=== PATIENT | female | born 1990 | race American Indian/Alaskan Native ===

== ENCOUNTER 2016-12-28 12:27 | Outpatient (CLI) | payer BC ==
--- NOTE | 2016-12-28 16:12 | Ultrasound Report ---
TRANSABDOMINAL AND TRANSVAGINAL PELVIC ULTRASOUND: 12/28/16 12:27:00 CLINICAL: Heavy menses. FINDINGS: Transabdominal and transvaginal pelvic ultrasound demonstrated a small uterus with normal contour and echogenicity. The uterus measures 7.1 x 4.2 x 5.8 cm. No mass or fibroid. A secretory endometrium measures 16.0 mm AP thickness. Normal ovaries with small follicles in each ovary. The right ovary measures 3.7 x 2.1 x 2.9cm. The left ovary measures 3.4 x 2.2 x 2.0cm. No adnexal mass. Mild free pelvic fluid. Normal urinary bladder. IMPRESSION: Normal uterus with a normal secretory endometrium. No uterine mass or fibroid. Normal ovaries. Physiologic free fluid in the pelvis.
== END 2016-12-28 12:28 | disposition home or self-care (01) ==
LOC: SPVWC 12:27
PROVIDERS: ATTEND Family Medicine
DX: N92.0 Excessive and frequent menstruation with regular cycle (principal)
CPT/HCPCS: 76830; 76856

== ENCOUNTER 2017-06-15 07:42 | Emergency (ER) | payer BC ==
[2017-06-15 08:42] LABS: Alanine Aminotransferase 12 units/L (7-56); Albumin 4.3 g/dL (3.9-5); BUN/Creatinine Ratio 10; Blood Urea Nitrogen 6 mg/dL (7-17); Calcium 9.5 mg/dL (8.4-10.2); Hemolysis Index 3
[2017-06-15 08:52] LABS: HCG Qualitative,Urine Positive (Negative)
[2017-06-15 08:53] LABS: Bacteria,Urine 2+ /HPF (Negative); Bilirubin,Urine NEG (Negative); Blood,Urine NEG (Negative); Color,Urine Yellow (Yellow); Mucus,Urine 1+ /HPF; Urobilinogen,Urine < 2.0 mg/dL (<2.0)
[2017-06-15] MEDS ORDERED: ZOFRAN ODT PO ONE (08:58)
[2017-06-15 09:01] LABS: Basophils # (Auto) 0.1 K/mm3 (0.0-0.1); Basophils % (Auto) 0.6 % (0.0-1.8); Eosinophils # (Auto) 0.4 K/mm3 (0.0-0.4); Eosinophils % (Auto) 4.2 % (0.0-4.3); Hematocrit 34.7 % (30.3-42.9); Hemoglobin 11.2 gm/dl (10.1-14.3); Lymphocytes # (Auto) 1.8 K/mm3 (1.2-5.4); Mean Corpuscular HGB Conc 32 % (30-34); Mean Corpuscular Volume 79 fl (79-97); Monocytes # (Auto) 0.5 K/mm3 (0.0-0.8); Monocytes % (Auto) 5.3 % (0.0-7.3); Platelet Count 369 K/mm3 (140-440); Red Blood Count 4.39 M/mm3 (3.65-5.03); Red Cell Distribution Width 18.3 % (13.2-15.2)
[2017-06-15 09:09] LABS: Lipase 22 units/L (13-60)
--- NOTE | 2017-06-15 09:19 | Emergency Department Report ---
ED N/V/D HPI - General Chief complaint: Abdominal Pain Stated complaint: VOMITING Time Seen by Provider: 06/15/17 08:43 Source: patient Mode of arrival: Ambulatory Limitations: No Limitations - History of Present Illness Initial comments: 26-year-old female past medical history none presents with complaint of one day of nausea. 2 to 3 episodes of vomiting since yesterday early afternoon. Patient states she ate a sandwich and felt nauseous afterward. Denies any diarrhea and denies any fevers or chills denies any increased urinary frequency or vaginal discharge or vaginal bleeding. Patient is awake alert and oriented 3 not in acute distress. Denies any abdominal pain at this time states she primarily feels nausea. Denies any recent antibiotic use denies any recent travel. States she mostly felt abdominal pain after retching. This spontaneously resolved after vomiting. Patient states her last menstrual period was 05/04/17. Unsure if she is currently . MD complaint: nausea, vomiting Onset/Timin -: days(s) Description of Vomiting: watery Location: epigastric Severity: mild Consistency: intermittent Associated Symptoms: nausea/vomiting - Related Data Previous Rx's Medication Instructions Recorded Last Taken Type Butalb/Acetamin/Caff 50-325-40 1 each PO Q4H PRN #14 tablet 05/02/14 Unknown Rx [Fioricet] Cyclobenzaprine [Flexeril 10mg] 10 mg PO TID PRN #14 tablet 05/02/14 Unknown Rx Ondansetron [Zofran Odt] 4 mg PO Q6H #10 tab.rapdis 05/02/14 Unknown Rx Albuterol Sulfate [Ventolin HFA] 2 puff IH Q4H PRN #1 hfa.aer.ad 08/14/14 Unknown Rx Azithromycin [Zithromax Z-VIV] 250 mg PO DAILY #1 pkg 08/14/14 Unknown Rx Loratadine [Claritin] 10 mg PO DAILY #30 tablet 08/14/14 Unknown Rx predniSONE [Deltasone] 40 mg PO QDAY #10 tab 08/14/14 Unknown Rx Doxylamine Succinate/Vit B6 1 each PO QHS PRN #20 tablet.dr 06/15/17 Unknown Rx [Diclegis Dr 10-10 mg Tablet] Nitrofurantoin Monohyd/M-Cryst 100 mg PO BID #14 capsule 06/15/17 Unknown Rx [Macrobid 100 mg Capsule] Ondansetron [Zofran Odt] 4 mg PO Q8H PRN #5 tab.rapdis 06/15/17 Unknown Rx Pnv No.95/Ferrous Fum/Folic AC 1 each PO QDAY #30 tablet 06/15/17 Unknown Rx [ Formula Tablet] Allergies Allergy/AdvReac Type Severity Reaction Status Date / Time No Known Allergies Allergy Unverified 05/02/14 21:15 ED Review of Systems ROS: Stated complaint: VOMITING Other details as noted in HPI Constitutional: denies: chills, fever Eyes: denies: eye pain, eye discharge, vision change ENT: denies: ear pain, throat pain Respiratory: denies: cough, shortness of breath, wheezing Cardiovascular: denies: chest pain, palpitations Endocrine: no symptoms reported Gastrointestinal: abdominal pain (1 day of epigastric discomfort with associated nausea and vomiting), nausea, vomiting. denies: diarrhea Genitourinary: denies: urgency, dysuria, discharge Musculoskeletal: denies: back pain, joint swelling, arthralgia Skin: denies: rash, lesions Neurological: denies: headache, weakness, paresthesias Psychiatric: denies: anxiety, depression Hematological/Lymphatic: denies: easy bleeding, easy bruising ED Past Medical Hx - Past Medical History Previous Medical History?: No - Surgical History Past Surgical History?: No - Social History Smoking Status: Never Smoker - Medications Home Medications: Home Medications Medication Instructions Recorded Confirmed Last Taken Type Butalb/Acetamin/Caff 50-325-40 1 each PO Q4H PRN #14 tablet 05/02/14 Unknown Rx [Fioricet] Cyclobenzaprine [Flexeril 10mg] 10 mg PO TID PRN #14 tablet 05/02/14 Unknown Rx Ondansetron [Zofran Odt] 4 mg PO Q6H #10 tab.rapdis 05/02/14 Unknown Rx Albuterol Sulfate [Ventolin HFA] 2 puff IH Q4H PRN #1 hfa.aer.ad 08/14/14 Unknown Rx Azithromycin [Zithromax Z-VIV] 250 mg PO DAILY #1 pkg 08/14/14 Unknown Rx Loratadine [Claritin] 10 mg PO DAILY #30 tablet 08/14/14 Unknown Rx predniSONE [Deltasone] 40 mg PO QDAY #10 tab 08/14/14 Unknown Rx Doxylamine Succinate/Vit B6 1 each PO QHS PRN #20 tablet. 06/15/17 Unknown Rx [Diclegiadriano Kendrick 10-10 mg Tablet] Nitrofurantoin Monohyd/M-Cryst 100 mg PO BID #14 capsule 06/15/17 Unknown Rx [Macrobid 100 mg Capsule] Ondansetron [Zofran Odt] 4 mg PO Q8H PRN #5 tab.rapdis 06/15/17 Unknown Rx Pnv No.95/Ferrous Fum/Folic AC 1 each PO QDAY #30 tablet 06/15/17 Unknown Rx [ Formula Tablet] ED Physical Exam - General Limitations: No Limitations General appearance: alert, in no apparent distress - Head Head exam: Present: atraumatic, normocephalic - Eye Eye exam: Present: normal appearance, PERRL, EOMI - ENT ENT exam: Present: mucous membranes moist - Neck Neck exam: Present: normal inspection - Respiratory Respiratory exam: Present: normal lung sounds bilaterally. Absent: respiratory distress - Cardiovascular Cardiovascular Exam: Present: regular rate, normal rhythm. Absent: systolic murmur, diastolic murmur, rubs, gallop - GI/Abdominal GI/Abdominal exam: Present: soft, normal bowel sounds - Extremities Exam Extremities exam: Present: normal inspection - Back Exam Back exam: Present: normal inspection - Neurological Exam Neurological exam: Present: alert, oriented X3 - Psychiatric Psychiatric exam: Present: normal affect, normal mood - Skin Skin exam: Present: warm, dry, intact, normal color. Absent: rash ED Course Vital Signs 06/15/17 08:00 Temperature 98.2 F Pulse Rate 72 Respiratory 18 Rate Blood Pressure 109/57 O2 Sat by Pulse 99 Oximetry ED Medical Decision Making - Lab Data Result diagrams: 06/15/17 08:10 06/15/17 08:10 - Medical Decision Making A/P: Nausea and vomiting, 1- ultrasound shows IUP bout 6 weeks, UA shows large leukocyte esterase, wet prep unremarkable. Macrobid empirically for UTI 2- case discussed with Dr. Wellington before discharge 3- Diclegis when necessary, La when necessary for nausea, short course Zofran, vitamins 4- follow-up with [facility]. Patient has no vaginal bleeding or discharge at this time 5- vital signs stable and patient tolerating by mouth without difficulty before discharge Critical care attestation.: If time is entered above; I have spent that time in minutes in the direct care of this critically ill patient, excluding procedure time. ED Disposition Clinical Impression: Qualifiers: Weeks of gestation: less than 8 weeks Qualified Code(s): Z3A.01 - Less than 8 weeks gestation of Nausea & vomiting Qualifiers: Vomiting type: unspecified Vomiting Intractability: non-intractable Qualified Code(s): R11.2 - Nausea with vomiting, unspecified Disposition: DC- TO HOME OR SELFCARE Is pt being admited?: No Does the pt Need Aspirin: No Condition: Stable Instructions: Abdominal Pain (ED), Morning Sickness (ED), (ED), Urinary Tract Infection in Women (ED) Prescriptions: Doxylamine Succinate/Vit B6 [Zuri Kendrick 10-10 mg Tablet] 1 each PO QHS PRN #20 tablet.dr PRN Reason: Nausea Nitrofurantoin Monohyd/M-Cryst [Macrobid 100 mg Capsule] 100 mg PO BID #14 capsule Ondansetron [Zofran Odt] 4 mg PO Q8H PRN #5 tab.rapdis PRN Reason: Nausea Pnv No.95/Ferrous Fum/Folic AC [ Formula Tablet] 1 each PO QDAY #30 tablet Referrals: [facility] [[facility]] - 3-5 Days Forms: Work/School Release Form(ED) Time of Disposition: 11:05
[2017-06-15 09:28] LABS: Mean Corpuscular Hemoglobin 26 pg (28-32)
--- NOTE | 2017-06-15 10:00 | Ultrasound Report ---
ULTRASOUND OB LESS THAN 14 WEEKS FETUS ULTRASOUND OB TRANSVAGINAL HISTORY: Abdominal pain during . COMPARISON: None. TECHNIQUE: Transabdominal and transvaginal ultrasound with color doppler interrogation. FINDINGS: Uterus: The uterus measures 10 x 5 x 5 cm. No uterine mass. Normal cervix. Endometrium: An intrauterine gestational sac containing a small yolk sac is identified. Average diameter measures 13.7 mm which correlates with a 6 week, 2 day . No pole or heart tones could be demonstrated.. Right ovary: 3.0 x 2.8 x 2.9 cm. 2.1 cm corpus luteum cyst is suspected in the right ovary. Left ovary: 3.1 x 1.6 x 1.8 cm. No focal abnormality. No pelvic fluid or mass is identified. Normal color doppler interrogation. IMPRESSION: An intrauterine gestational sac containing a yolk sac is identified. No pole or heart tones are demonstrated at this time. This could represent a very early although blighted ovum is not excluded. Close followup is recommended.
[2017-06-15 11:44] VITALS: BP 100/63
== END 2017-06-15 11:41 | disposition home or self-care (01) ==
LOC: ED 07:42
DX: O26.891 Other specified pregnancy related conditions, first trimester (principal); Z3A.01 Less than 8 weeks gestation of pregnancy
CPT/HCPCS: 36415; 76801; 76817; 80053; 81001; 81025; 82150; 83690; 84702; 85025; 86900; 86901; 87210; 87591; Q0162

== ENCOUNTER 2017-06-21 16:25 | Emergency (ER) | payer BC ==
[2017-06-21 16:48] VITALS: BP 112/58
[2017-06-21 18:26] LABS: Bacteria,Urine 1+ /HPF (Negative); Bilirubin,Urine NEG (Negative); Blood,Urine NEG (Negative); Color,Urine Yellow (Yellow); Mucus,Urine 3+ /HPF; Urobilinogen,Urine < 2.0 mg/dL (<2.0)
--- NOTE | 2017-06-21 20:18 | Emergency Department Report ---
ED General Adult HPI - General Chief complaint: Abdominal Pain Stated complaint: STOMACH PAIN/CP/ 7 WKS PREG Time Seen by Provider: 06/21/17 20:14 Source: patient Mode of arrival: Ambulatory Limitations: No Limitations - History of Present Illness Initial comments: 26-year-old -[place] female comes to the ER with complaints of nausea and vomiting, and constipation. Patient also complains of lower abdominal pain and states that she has a bowel movement daily but has not gone in 2 days. Patient is 7 weeks . She complains of mild dryness pelvic pain and nausea with vomiting. She denies any chest pain shortness of breathing vaginal discharge headache. Patient was last seen on 06/15/2017 for nausea diagnosis of and a urinary tract infection. Patient reports she's been taking the medication prescribed which was vitamins with iron, Zofran. He has a past medical history of asthma. -: days(s) (2) Location: pelvis Severity scale (0 -10): 8 Quality: burning, aching Consistency: constant Improves with: none Worsens with: none Associated Symptoms: nausea/vomiting. denies: chest pain, cough, fever/chills, headaches, loss of appetite, shortness of breath, syncope Treatments Prior to Arrival: none - Related Data Previous Rx's Medication Instructions Recorded Last Taken Type Ondansetron [Zofran Odt] 4 mg PO Q6H #10 tab.rapdis 05/02/14 Unknown Rx Albuterol Sulfate [Ventolin HFA] 2 puff IH Q4H PRN #1 hfa.aer.ad 08/14/14 Unknown Rx Loratadine [Claritin] 10 mg PO DAILY #30 tablet 08/14/14 Unknown Rx predniSONE [Deltasone] 40 mg PO QDAY #10 tab 08/14/14 Unknown Rx Ondansetron [Zofran Odt] 4 mg PO Q8H PRN #5 tab.rapdis 06/15/17 Unknown Rx Pnv No.95/Ferrous Fum/Folic AC 1 each PO QDAY #30 tablet 06/15/17 Unknown Rx [ Formula Tablet] Cephalexin [Keflex] 500 mg PO BID #20 capsule 06/21/17 Unknown Rx La Root [La] 250 mg PO QID PRN #20 capsule 06/21/17 Unknown Rx Ondansetron [Zofran ODT TAB] 8 mg PO Q8H PRN #9 tab.rapdis 06/21/17 Unknown Rx Allergies Allergy/AdvReac Type Severity Reaction Status Date / Time No Known Allergies Allergy Unverified 05/02/14 21:15 ED Review of Systems ROS: Stated complaint: STOMACH PAIN/CP/ 7 WKS PREG Other details as noted in HPI Constitutional: denies: chills, fever Eyes: denies: eye pain, eye discharge, vision change ENT: denies: ear pain, throat pain Respiratory: denies: cough, shortness of breath, wheezing Cardiovascular: denies: chest pain, palpitations Endocrine: no symptoms reported Gastrointestinal: abdominal pain, nausea, vomiting, constipation Genitourinary: denies: urgency, dysuria, discharge Musculoskeletal: denies: back pain, joint swelling, arthralgia Skin: denies: rash, lesions Neurological: denies: headache, weakness, paresthesias Psychiatric: denies: anxiety, depression Hematological/Lymphatic: denies: easy bleeding, easy bruising ED Past Medical Hx - Past Medical History Previous Medical History?: Yes Hx Asthma: Yes - Surgical History Past Surgical History?: No - Social History Smoking Status: Never Smoker Substance Use Type: None - Medications Home Medications: Home Medications Medication Instructions Recorded Confirmed Last Taken Type Ondansetron [Zofran Odt] 4 mg PO Q6H #10 tab.rapdis 05/02/14 Unknown Rx Albuterol Sulfate [Ventolin HFA] 2 puff IH Q4H PRN #1 hfa.aer.ad 08/14/14 Unknown Rx Loratadine [Claritin] 10 mg PO DAILY #30 tablet 08/14/14 Unknown Rx predniSONE [Deltasone] 40 mg PO QDAY #10 tab 08/14/14 Unknown Rx Ondansetron [Zofran Odt] 4 mg PO Q8H PRN #5 tab.rapdis 06/15/17 Unknown Rx Pnv No.95/Ferrous Fum/Folic AC 1 each PO QDAY #30 tablet 06/15/17 Unknown Rx [ Formula Tablet] Cephalexin [Keflex] 500 mg PO BID #20 capsule 06/21/17 Unknown Rx La Root [La] 250 mg PO QID PRN #20 capsule 06/21/17 Unknown Rx Ondansetron [Zofran ODT TAB] 8 mg PO Q8H PRN #9 tab.rapdis 06/21/17 Unknown Rx ED Physical Exam - General Limitations: No Limitations General appearance: alert, in no apparent distress, other (nontoxic) - Head Head exam: Present: atraumatic, normocephalic - Eye Eye exam: Present: normal appearance - ENT ENT exam: Present: mucous membranes moist - Neck Neck exam: Present: normal inspection - Respiratory Respiratory exam: Present: normal lung sounds bilaterally. Absent: respiratory distress - Cardiovascular Cardiovascular Exam: Present: regular rate, normal rhythm. Absent: systolic murmur, diastolic murmur, rubs, gallop - GI/Abdominal GI/Abdominal exam: Present: soft, tenderness (pelvic), normal bowel sounds - Extremities Exam Extremities exam: Present: normal inspection. Absent: pedal edema - Back Exam Back exam: Present: normal inspection - Neurological Exam Neurological exam: Present: alert, oriented X3 - Psychiatric Psychiatric exam: Present: normal affect, normal mood - Skin Skin exam: Present: warm, dry, intact, normal color. Absent: rash ED Course Vital Signs 06/21/17 16:37 Temperature 97.6 F Pulse Rate 55 L Respiratory 16 Rate Blood Pressure 112/58 O2 Sat by Pulse 100 Oximetry ED Medical Decision Making - Medical Decision Making Patient evaluated by this provider fast track. As well as reviewing her chart. Appears a patient had a UTI at her last visit on 06/06/2017. Urinalysis seems to improve but there still appears to be some bacteria in her urine. We will treat patient with Keflex. Patient continues to have nausea and vomiting. The place patient on la root 250 mg 4 times a day as well as Zofran when necessary. We will start a by mouth trial. Discussed the patient she needs to follow up with her [facility] which she reports has an appointment on 07/06/2017. Discuss patient's takes saltine crackers drink sips of water not AND advance her diet as tolerated. Patient verbalized understanding. Critical care attestation.: If time is entered above; I have spent that time in minutes in the direct care of this critically ill patient, excluding procedure time. ED Disposition Clinical Impression: Nausea & vomiting Qualifiers: Vomiting type: unspecified Vomiting Intractability: unspecified Qualified Code( s): R11.2 - Nausea with vomiting, unspecified UTI (urinary tract infection) Qualifiers: Urinary tract infection type: site unspecified Hematuria presence: without hematuria Qualified Code(s): N39.0 - Urinary tract infection, site not specified Disposition: DC- TO HOME OR SELFCARE Is pt being admited?: No Does the pt Need Aspirin: No Condition: Stable Instructions: Abdominal Pain (ED) Additional Instructions: Take medication as prescribed. Try to increase her fluids and advance her diet as tolerated. Follow-up with your [facility]MENT [facility]. Complete all antibiotics as prescribed. Prescriptions: Cephalexin [Keflex] 500 mg PO BID #20 capsule La Root [La] 250 mg PO QID PRN #20 capsule PRN Reason: Nausea Ondansetron [Zofran ODT TAB] 8 mg PO Q8H PRN #9 tab.rapdis PRN Reason: Nausea Referrals: [facility] [[facility]] - 3-5 Days Forms: Work/School Release Form(ED)
[2017-06-21] MEDS ORDERED: ZOFRAN ODT PO ONE (20:20)
[2017-06-21] MEDS ORDERED: TYLENOL PO ONE (20:21)
== END 2017-06-21 22:18 | disposition home or self-care (01) ==
LOC: ED 16:25
DX: O23.41 Unspecified infection of urinary tract in pregnancy, first trimester (principal); O21.9 Vomiting of pregnancy, unspecified; O99.511 Diseases of the respiratory system complicating pregnancy, first trimester; Z3A.01 Less than 8 weeks gestation of pregnancy
CPT/HCPCS: 81001; 99282; Q0162

== ENCOUNTER 2019-04-24 11:49 | Emergency (ER) | payer SELFPAY ==
[2019-04-24] MEDS ORDERED: FAMOTIDINE 20 MG TAB PO ONE (12:55)
[2019-04-24] MEDS ORDERED: ONDANSETRON 4 MG ODT TAB PO ONE (12:55)
[2019-04-24 12:57] VITALS: BP 101/47
--- NOTE | 2019-04-24 12:57 | Emergency Department Report ---
Chief Complaint: Nausea/Vomiting/Diarrhea Stated Complaint: ABD PAINS/VOMITING/WEAKNESS Time Seen by Provider: 04/24/19 12:56 - HPI History of Present Illness: 28 y/o fem p/w lower abd pain n/v unsure if + marijuana use sober at this time + dysuria belly soft labs symptom control needs repeat belly exam ok for minor cARE REASSESS Vital Signs 04/24/19 12:54 Temperature 97.5 F L Pulse Rate 56 L Respiratory 18 Rate Blood Pressure 101/47 O2 Sat by Pulse 100 Oximetry MSE screening note: Focused history and physical exam performed. Due to findings the following was ordered: ED Disposition for MSE Condition: Stable
[2019-04-24 13:30] LABS: Bacteria,Urine 1+ /HPF (Negative); Bilirubin,Urine NEG (Negative); Blood,Urine MOD (Negative); Color,Urine Yellow (Yellow); Mucus,Urine 3+ /HPF; Urobilinogen,Urine < 2.0 mg/dL (<2.0)
[2019-04-24 13:38] LABS: WBC,Urine > 182.0 /HPF (0.0-6.0)
[2019-04-24 14:24] LABS: Hematocrit 35.7 % (30.3-42.9); Hemoglobin 11.8 gm/dl (10.1-14.3); Mean Corpuscular HGB Conc 33 % (30-34); Mean Corpuscular Volume 81 fl (79-97); Platelet Count 359 K/mm3 (140-440); Red Blood Count 4.41 M/mm3 (3.65-5.03); Red Cell Distribution Width 16.8 % (13.2-15.2)
[2019-04-24 14:46] LABS: Alanine Aminotransferase 10 units/L (7-56); Albumin 4.5 g/dL (3.9-5); BUN/Creatinine Ratio 13; Blood Urea Nitrogen 8 mg/dL (7-17); Calcium 9.6 mg/dL (8.4-10.2); Hemolysis Index 5
[2019-04-24] MEDS ORDERED: FAMOTIDINE 20 MG TAB ONE (17:09)
[2019-04-24] MEDS ORDERED: ONDANSETRON 4 MG ODT TAB ONE (17:09)
[2019-04-24] MEDS ORDERED: cefTRIAXone/NS 1 GM/50 ML 1 GM/50 ML BAG IV ONE (18:33)
[2019-04-24] MEDS ORDERED: ACETAMINOPHEN 500 MG TAB PO ONE (18:33)
[2019-04-24] MEDS ORDERED: SODIUM CHLORIDE 0.9% 1000 ML 1,000 ML IV ONE (18:33)
[2019-04-24] MEDS ORDERED: METOCLOPRAMIDE 10 MG/2 ML INJ IV ONE (18:34)
[2019-04-24] MEDS ORDERED: diphenhydrAMINE 50 MG/ML VIAL IV ONE (18:35)
--- NOTE | 2019-04-24 19:12 | Emergency Department Report ---
ED N/V/D HPI - General Chief complaint: Nausea/Vomiting/Diarrhea Stated complaint: ABD PAINS/VOMITING/WEAKNESS Time Seen by Provider: 04/24/19 12:56 Source: patient Mode of arrival: Ambulatory Limitations: No Limitations - History of Present Illness Initial comments: Patient is a A2 28 year-old [place] female who is approximately 5 weeks' gestation and presented to the ED with acute onset persistent pelvic pain with nausea and vomiting for the last 3 days. Patient states that she has not been able to keep anything down for the last 24 hours although her last vomiting episode was 6 hours ago. Patient denies vaginal bleeding, vaginal discharge, low back pain, dysuria, urinary frequency and urgency, fever, chills, cough, shortness of breath, headache, dizziness, syncope or change in vision. MD complaint: nausea, vomiting, abdominal pain -: Sudden, days(s) (3) Description of Vomiting: food contents, watery Associated Abdominal Pain: Yes (Lower abdominal pain) Radiation: none Pain Scale: 6 Quality: cramping, aching, sharp Consistency: intermittent Improves with: none Worsens with: vomiting, movement Associated Symptoms: denies other symptoms, myalgias, loss of appetite, nausea/vomiting. denies: chest pain, cough, diaphoresis, fever/chills, headaches, malaise, shortness of breath, syncope, weakness - Related Data Previous Rx's Medication Instructions Recorded Last Taken Type Ondansetron [Zofran Odt] 4 mg PO Q6H #10 tab.rapdis 05/02/14 Unknown Rx Albuterol Sulfate [Ventolin HFA] 2 puff IH Q4H PRN #1 hfa.aer.ad 08/14/14 Unknown Rx Loratadine (Nf) [Claritin] 10 mg PO DAILY #30 tablet 08/14/14 Unknown Rx predniSONE [Deltasone] 40 mg PO QDAY #10 tab 08/14/14 Unknown Rx Ondansetron [Zofran Odt] 4 mg PO Q8H PRN #5 tab.rapdis 06/15/17 Unknown Rx Pnv No.95/Ferrous Fum/Folic AC 1 each PO QDAY #30 tablet 06/15/17 Unknown Rx [ Formula Tablet] Cephalexin [Keflex] 500 mg PO BID #20 capsule 06/21/17 Unknown Rx La Root [La] 250 mg PO QID PRN #20 capsule 06/21/17 Unknown Rx Ondansetron [Zofran ODT TAB] 8 mg PO Q8H PRN #9 tab.rapdis 06/21/17 Unknown Rx Nitrofurantoin Macrocrysta(Nf) 100 mg PO BID #14 capsule 02/04/18 Unknown Rx [Macrodantin CAP] Ondansetron [Zofran Odt] 4 mg PO TID PRN #10 tab.rapdis 02/04/18 Unknown Rx Acetaminophen [Acetaminophen TAB] 500 mg PO Q6HR PRN #30 tablet 04/24/19 Unknown Rx Promethazine [Phenergan] 25 mg PO Q6HR PRN #30 tab 04/24/19 Unknown Rx cephALEXin [Keflex] 500 mg PO Q6HR #40 capsule 04/24/19 Unknown Rx Allergies Allergy/AdvReac Type Severity Reaction Status Date / Time No Known Allergies Allergy Unverified 05/02/14 21:15 ED Review of Systems ROS: Stated complaint: ABD PAINS/VOMITING/WEAKNESS Other details as noted in HPI Constitutional: denies: chills, fever Eyes: denies: eye pain, eye discharge, vision change ENT: denies: ear pain, throat pain Respiratory: denies: cough, shortness of breath, wheezing Cardiovascular: denies: chest pain, palpitations Endocrine: no symptoms reported Gastrointestinal: abdominal pain (suprapubic), nausea, vomiting. denies: diarrhea Genitourinary: denies: urgency, dysuria, discharge Musculoskeletal: denies: back pain, joint swelling, arthralgia Skin: denies: rash, lesions Neurological: denies: headache, weakness, paresthesias Psychiatric: denies: anxiety, depression Hematological/Lymphatic: denies: easy bleeding, easy bruising ED Past Medical Hx - Past Medical History Previous Medical History?: Yes Hx Asthma: Yes - Surgical History Past Surgical History?: No - Social History Smoking Status: Never Smoker Substance Use Type: None - Medications Home Medications: Home Medications Medication Instructions Recorded Confirmed Last Taken Type Ondansetron [Zofran Odt] 4 mg PO Q6H #10 tab.rapdis 05/02/14 Unknown Rx Albuterol Sulfate [Ventolin HFA] 2 puff IH Q4H PRN #1 hfa.aer.ad 08/14/14 Unknown Rx Loratadine (Nf) [Claritin] 10 mg PO DAILY #30 tablet 08/14/14 Unknown Rx predniSONE [Deltasone] 40 mg PO QDAY #10 tab 08/14/14 Unknown Rx Ondansetron [Zofran Odt] 4 mg PO Q8H PRN #5 tab.rapdis 06/15/17 Unknown Rx Pnv No.95/Ferrous Fum/Folic AC 1 each PO QDAY #30 tablet 06/15/17 Unknown Rx [ Formula Tablet] Cephalexin [Keflex] 500 mg PO BID #20 capsule 06/21/17 Unknown Rx La Root [La] 250 mg PO QID PRN #20 capsule 06/21/17 Unknown Rx Ondansetron [Zofran ODT TAB] 8 mg PO Q8H PRN #9 tab.rapdis 06/21/17 Unknown Rx Nitrofurantoin Macrocrysta(Nf) 100 mg PO BID #14 capsule 02/04/18 Unknown Rx [Macrodantin CAP] Ondansetron [Zofran Odt] 4 mg PO TID PRN #10 tab.rapdis 02/04/18 Unknown Rx Acetaminophen [Acetaminophen TAB] 500 mg PO Q6HR PRN #30 tablet 04/24/19 Unknown Rx Promethazine [Phenergan] 25 mg PO Q6HR PRN #30 tab 04/24/19 Unknown Rx cephALEXin [Keflex] 500 mg PO Q6HR #40 capsule 04/24/19 Unknown Rx ED Physical Exam - General Limitations: No Limitations General appearance: alert, in no apparent distress - Head Head exam: Present: atraumatic, normocephalic - Eye Eye exam: Present: normal appearance, PERRL, EOMI Pupils: Present: normal accommodation - ENT ENT exam: Present: normal exam, normal orophraynx, mucous membranes moist, TM's normal bilaterally, normal external ear exam - Neck Neck exam: Present: normal inspection, full ROM. Absent: tenderness, lymphade nopathy - Respiratory Respiratory exam: Present: normal lung sounds bilaterally. Absent: respiratory distress, wheezes, rales, chest wall tenderness, accessory muscle use, decreased breath sounds, prolonged expiratory - Cardiovascular Cardiovascular Exam: Present: regular rate, normal rhythm, normal heart sounds. Absent: systolic murmur, diastolic murmur, rubs, gallop - GI/Abdominal GI/Abdominal exam: Present: soft, tenderness (Palpable mild suprapubic tenderness), normal bowel sounds. Absent: guarding, rebound, hyperactive bowel sounds, hypoactive bowel sounds, organomegaly - Extremities Exam Extremities exam: Present: normal inspection, full ROM, normal capillary refill - Back Exam Back exam: Present: normal inspection, full ROM. Absent: tenderness, CVA tenderness (R), muscle spasm, paraspinal tenderness - Neurological Exam Neurological exam: Present: alert, oriented X3, CN II-XII intact, normal gait, reflexes normal - Psychiatric Psychiatric exam: Present: normal affect, normal mood - Skin Skin exam: Present: warm, dry, intact, normal color. Absent: rash ED Course Vital Signs 04/24/19 04/24/19 12:54 19:35 Temperature 97.5 F L Pulse Rate 56 L Respiratory 18 16 Rate Blood Pressure 101/47 O2 Sat by Pulse 100 Oximetry ED Medical Decision Making - Lab Data Result diagrams: 04/24/19 13:47 04/24/19 13:47 - Radiology Data Radiology results: report reviewed, image reviewed Findings [address] [address] Ultrasound Report Signed Patient: BRAYDEN WALLIS MR#: [id number] : 1990 Acct:[id number] Age/Sex: 28 / F ADM Date: 04/24/19 Loc: ED Attending Dr: Ordering Physician: KYM CASTELLON Date of Service: 04/24/19 Procedure(s): US OB transvaginal Accession Number(s): [id number] cc: KYM CASTELLON TRANSABDOMINAL AND TRANSVAGINAL OB PELVIC ULTRASOUND INDICATION / CLINICAL INFORMATION: Abdominal and pelvic pain for 3 days. COMPARISON: None available. FINDINGS: Transabdominal images are suboptimal and transvaginal scanning was subsequently performed. There is a single intrauterine with an estimated sonographic gestational age of 5 weeks 6 days by crown-rump length. The heart rate is 105 bpm. A yolk sac is present. There is no evidence of implantation hemorrhage. The left ovary measures 3.5 x 1.8 x 1.7 cm and contains a 2.1 cm corpus luteal cyst. The right ovary measures 2.4 x 1.6 x 2.4 cm. There is no evidence of adnexal mass, free fluid or other significant abnormality. IMPRESSION: Single viable 5 week 6 day intrauterine without complication. Signer Name: Pako Chakraborty MD Signed: 04/24/2019 9:01 PM Workstation Name: [id number] Transcribed By: RT Dictated By: Pako Chakraborty MD Electronically Authenticated By: Pako Chakraborty MD Signed Date/Time: 04/24/192100 DD/ 57 TD/TT: - Medical Decision Making This is a A2 28-year-old female was approximately 5 weeks gestation and who presented to the ED with constant of acute onset persistent severe lower abdominal pain with nausea and vomiting for 3 days. In the ED, patient is alert and oriented 3 and is not in distress. Lab test results were reviewed and showed significant acute urinary tract infection, acute leukocytosis of 11,500, [place] [address]. Patient was treated in the ED with normal saline 1 L IV bolus, antiemetics, Tylenol for pain, and also received Rocephin 1 g IV 1 in the ED for acute urinary tract infection. Transvaginal ultrasound shows a single viable 5 week 6 day intrauterine with a heart rate of 105 bpm without any complication. On reevaluation, patient's pain is well- controlled with medications. Patient has not had any nausea or vomiting in the ED so she left the receiving IV antiemetics. Patient was discharged home on oral antibiotics and antiemetics and advised to take Tylenol as needed for pain. Patient was also advised to maintain a complete pelvic rest and follow-up with the ANIMAL ATTENDANT physician in 3-5 days for reevaluation or return to the ED immediately if symptoms get worse. - Differential Diagnosis Ovarian cyst; Ectopic ; UTI; Fibroids; Subchorionic bleed Critical care attestation.: If time is entered above; I have spent that time in minutes in the direct care of this critically ill patient, excluding procedure time. ED Disposition Clinical Impression: Nausea and vomiting in prior to 22 weeks gestation, Acute urinary tract infection Abdominal pain in Qualifiers: Trimester: first trimester Qualified Code(s): O26.891 - Other specified related conditions, first trimester; R10.9 - Unspecified abdominal pain Disposition: - TO HOME OR SELFCARE Is pt being admited?: No Does the pt Need Aspirin: No Condition: Stable Instructions: Urinary Tract Infection in Women (ED), Abdominal Pain in (ED), Acute Nausea and Vomiting (ED) Additional Instructions: Maintain a complete pelvic rest with no strenuous physical activity, no sexual activity or heavy lifting. Follow-up with the ANIMAL ATTENDANT physician in 5-7 days for reevaluation. Take medications as needed for nausea and vomiting and Tylenol as needed for pain. Return to the ED immediately if symptoms get worse. Prescriptions: Acetaminophen [Acetaminophen TAB] 500 mg PO Q6HR PRN #30 tablet PRN Reason: Pain , Severe (7-10) cephALEXin [Keflex] 500 mg PO Q6HR #40 capsule Promethazine [Phenergan] 25 mg PO Q6HR PRN #30 tab PRN Reason: Nausea Referrals: NORMA KEATING MD [Staff Physician] - 3-5 Days Forms: Work/School Release Form(ED) Time of Disposition: 23:43 Print Language: URDU
--- NOTE | 2019-04-24 21:06 | Ultrasound Report ---
TRANSABDOMINAL AND TRANSVAGINAL OB PELVIC ULTRASOUND INDICATION / CLINICAL INFORMATION: Abdominal and pelvic pain for 3 days. COMPARISON: None available. FINDINGS: Transabdominal images are suboptimal and transvaginal scanning was subsequently performed. There is a single intrauterine with an estimated sonographic gestational age of 5 weeks 6 days by cross tie cutter wn-rump length. The heart rate is 105 bpm. A yolk sac is present. There is no evidence of impla ntation hemorrhage. The left ovary measures 3.5 x 1.8 x 1.7 cm and contains a 2.1 cm corpus luteal cyst. The right ovary measures 2.4 x 1.6 x 2.4 cm. There is no evidence of adnexal mass, free fluid or other significant ab normality. IMPRESSION: Single viable 5 week 6 day intrauterine without complication. Signer Name: Pako Chakraborty MD Signed: 04/24/2019 9:01 PM Workstation Name: [id number]
--- NOTE | 2019-04-24 21:06 | Ultrasound Report ---
TRANSABDOMINAL AND TRANSVAGINAL OB PELVIC ULTRASOUND INDICATION / CLINICAL INFORMATION: Abdominal and pelvic pain for 3 days. COMPARISON: None available. FINDINGS: Transabdominal images are suboptimal and transvaginal scanning was subsequently performed. There is a single intrauterine with an estimated sonographic gestational age of 5 weeks 6 days by microfilm machine operator wn-rump length. The heart rate is 105 bpm. A yolk sac is present. There is no evidence of impla ntation hemorrhage. The left ovary measures 3.5 x 1.8 x 1.7 cm and contains a 2.1 cm corpus luteal cyst. The right ovary measures 2.4 x 1.6 x 2.4 cm. There is no evidence of adnexal mass, free fluid or other significant ab normality. IMPRESSION: Single viable 5 week 6 day intrauterine without complication. Signer Name: Pako Chakraborty MD Signed: 04/24/2019 9:01 PM Workstation Name: [id number]
== END 2019-04-24 23:50 | disposition home or self-care (01) ==
LOC: ED 11:49
DX: O23.31 Infections of other parts of urinary tract in pregnancy, first trimester (principal); O99.511 Diseases of the respiratory system complicating pregnancy, first trimester; J45.909 Unspecified asthma, uncomplicated; Z3A.01 Less than 8 weeks gestation of pregnancy
CPT/HCPCS: 36415; 76801; 76817; 80053; 81001; 82550; 83690; 83735; 84702; 85027; 96365; 96375; 99284; J0696; J1200; J2765; J7030; Q0162

== ENCOUNTER 2019-05-04 13:30 | Observation (INO) | payer OTHER ==
--- NOTE | 2019-05-04 14:38 | Event Note ---
ED Screening Note ED Screening Note: 28 yo female who is currently 7 weeks . FARRAH 12.18.2019 Presents with nausea, hand numbness and "hyperventilating" This initial assessment/diagnostic orders/clinical plan/treatment(s) is/are subject to change based on patients health status, clinical progression and re- assessment by fellow clinical providers in the ED. Further treatment and workup at subsequent clinical providers discretion. Patient/guardian urged not to elope from the ED as their condition may be serious if not clinically assessed and managed. Initial orders include: labs
[2019-05-04 16:06] LABS: Basophils # (Auto) 0.1 K/mm3 (0.0-0.1); Basophils % (Auto) 0.6 % (0.0-1.8); Eosinophils % (Auto) 0.3 % (0.0-4.3); Hematocrit 42.3 % (30.3-42.9); Hemoglobin 14.1 gm/dl (10.1-14.3); Lymphocytes # (Auto) 2.3 K/mm3 (1.2-5.4); Lymphocytes % (Auto) 16.6 % (13.4-35.0); Mean Corpuscular HGB Conc 33 % (30-34); Mean Corpuscular Volume 80 fl (79-97); Monocytes # (Auto) 0.8 K/mm3 (0.0-0.8); Monocytes % (Auto) 5.8 % (0.0-7.3); Platelet Count 394 K/mm3 (140-440); Red Blood Count 5.26 M/mm3 (3.65-5.03); Red Cell Distribution Width 16.6 % (13.2-15.2)
[2019-05-04 16:26] LABS: BUN/Creatinine Ratio 21; Blood Urea Nitrogen 15 mg/dL (7-17); Calcium 10.6 mg/dL (8.4-10.2); Hemolysis Index 2
[2019-05-04] MEDS ORDERED: ONDANSETRON 4 MG/2 ML INJ IV ONE (18:39)
[2019-05-04] MEDS ORDERED: SODIUM CHLORIDE 0.9% 1000 ML 1,000 ML IV ONE ×2 (18:39)
--- NOTE | 2019-05-04 18:40 | Emergency Department Report ---
ED General Adult HPI - General Chief complaint: Dyspnea/Respdistress Stated complaint: 7WKS PREG/NATA Time Seen by Provider: 05/04/19 18:37 Source: patient Mode of arrival: Ambulatory Limitations: No Limitations - History of Present Illness Initial comments: Patient is a 28-year-old female that presents emergency room with complaints of dizziness, difficulty breathing, nausea, vomiting, generalized fatigue. Patient states she is 7 weeks and is not able to hold anything down. Patient states she felt fine before she started vomiting 5 days ago. Patient states she is not even able to hold water down. Patient states she is feeling dehydrated. Patient denies chest pain. Patient denies fever and chills. Patient denies diarrhea. Patient states she is a A0 -: Sudden - Related Data Previous Rx's Medication Instructions Recorded Last Taken Type Ondansetron [Zofran Odt] 4 mg PO Q6H #10 tab.rapdis 05/02/14 Unknown Rx Albuterol Sulfate [Ventolin HFA] 2 puff IH Q4H PRN #1 hfa.aer.ad 08/14/14 Unknown Rx Loratadine (Nf) [Claritin] 10 mg PO DAILY #30 tablet 08/14/14 Unknown Rx predniSONE [Deltasone] 40 mg PO QDAY #10 tab 08/14/14 Unknown Rx Ondansetron [Zofran Odt] 4 mg PO Q8H PRN #5 tab.rapdis 06/15/17 Unknown Rx Pnv No.95/Ferrous Fum/Folic AC 1 each PO QDAY #30 tablet 06/15/17 Unknown Rx [ Formula Tablet] Cephalexin [Keflex] 500 mg PO BID #20 capsule 06/21/17 Unknown Rx La Root [La] 250 mg PO QID PRN #20 capsule 06/21/17 Unknown Rx Ondansetron [Zofran ODT TAB] 8 mg PO Q8H PRN #9 tab.rapdis 06/21/17 Unknown Rx Nitrofurantoin Macrocrysta(Nf) 100 mg PO BID #14 capsule 02/04/18 Unknown Rx [Macrodantin CAP] Ondansetron [Zofran Odt] 4 mg PO TID PRN #10 tab.rapdis 02/04/18 Unknown Rx Acetaminophen [Acetaminophen TAB] 500 mg PO Q6HR PRN #30 tablet 04/24/19 Unknown Rx Promethazine [Phenergan] 25 mg PO Q6HR PRN #30 tab 04/24/19 Unknown Rx cephALEXin [Keflex] 500 mg PO Q6HR #40 capsule 04/24/19 Unknown Rx Allergies Allergy/AdvReac Type Severity Reaction Status Date / Time No Known Allergies Allergy Unverified 05/02/14 21:15 ED Review of Systems ROS: Stated complaint: 7WKS PREG/NATA Other details as noted in HPI Constitutional: malaise, weakness. denies: chills, fever Eyes: denies: eye pain, eye discharge, vision change ENT: denies: ear pain, throat pain Respiratory: denies: cough, shortness of breath, wheezing Cardiovascular: denies: chest pain, palpitations Endocrine: no symptoms reported Gastrointestinal: nausea, vomiting. denies: abdominal pain, diarrhea Genitourinary: denies: urgency, dysuria, discharge Musculoskeletal: denies: back pain, joint swelling, arthralgia Skin: denies: rash, lesions Neurological: as per HPI. denies: headache, weakness, paresthesias Psychiatric: denies: anxiety, depression Hematological/Lymphatic: denies: easy bleeding, easy bruising ED Past Medical Hx - Past Medical History Previous Medical History?: Yes Hx Asthma: Yes - Surgical History Past Surgical History?: No - Social History Smoking Status: Former Smoker Substance Use Type: Alcohol, Marijuana - Medications Home Medications: Home Medications Medication Instructions Recorded Confirmed Last Taken Type Ondansetron [Zofran Odt] 4 mg PO Q6H #10 tab.rapdis 05/02/14 Unknown Rx Albuterol Sulfate [Ventolin HFA] 2 puff IH Q4H PRN #1 hfa.aer.ad 08/14/14 Unknown Rx Loratadine (Nf) [Claritin] 10 mg PO DAILY #30 tablet 08/14/14 Unknown Rx predniSONE [Deltasone] 40 mg PO QDAY #10 tab 08/14/14 Unknown Rx Ondansetron [Zofran Odt] 4 mg PO Q8H PRN #5 tab.rapdis 06/15/17 Unknown Rx Pnv No.95/Ferrous Fum/Folic AC 1 each PO QDAY #30 tablet 06/15/17 Unknown Rx [ Formula Tablet] Cephalexin [Keflex] 500 mg PO BID #20 capsule 06/21/17 Unknown Rx La Root [La] 250 mg PO QID PRN #20 capsule 06/21/17 Unknown Rx Ondansetron [Zofran ODT TAB] 8 mg PO Q8H PRN #9 tab.rapdis 06/21/17 Unknown Rx Nitrofurantoin Macrocrysta(Nf) 100 mg PO BID #14 capsule 02/04/18 Unknown Rx [Macrodantin CAP] Ondansetron [Zofran Odt] 4 mg PO TID PRN #10 tab.rapdis 02/04/18 Unknown Rx Acetaminophen [Acetaminophen TAB] 500 mg PO Q6HR PRN #30 tablet 04/24/19 Unknown Rx Promethazine [Phenergan] 25 mg PO Q6HR PRN #30 tab 04/24/19 Unknown Rx cephALEXin [Keflex] 500 mg PO Q6HR #40 capsule 04/24/19 Unknown Rx ED Physical Exam - General Limitations: No Limitations General appearance: alert, in no apparent distress - Head Head exam: Present: atraumatic, normocephalic - Eye Eye exam: Present: normal appearance - ENT ENT exam: Present: mucous membranes dry - Neck Neck exam: Present: normal inspection - Respiratory Respiratory exam: Present: normal lung sounds bilaterally. Absent: respiratory distress - Cardiovascular Cardiovascular Exam: Present: regular rate, normal rhythm. Absent: systolic murmur, diastolic murmur, rubs, gallop - GI/Abdominal GI/Abdominal exam: Present: soft, tenderness (Mild suprapubic tenderness), normal bowel sounds - Extremities Exam Extremities exam: Present: normal inspection - Back Exam Back exam: Present: normal inspection - Neurological Exam Neurological exam: Present: alert, oriented X3 - Psychiatric Psychiatric exam: Present: normal affect, normal mood - Skin Skin exam: Present: warm, dry, intact, normal color. Absent: rash ED Course Vital Signs 05/04/19 05/04/19 05/04/19 13:44 18:47 21:55 Temperature 97.7 F 98.2 F Pulse Rate 63 56 L 58 L Respiratory 16 15 18 Rate Blood Pressure 107/71 Blood Pressure 115/72 104/61 [Left] O2 Sat by Pulse 98 100 100 Oximetry - Reevaluation(s) Reevaluation #1: I I discussed all results with patient. I discussed plan of care with patient. Patient agrees with plan of care and admission. Patient to be admitted to the mother-baby 05/04/19 21:10 - Consultations Consultation #1: CHAIR FINISHER consulted, Dr. Patel. Dr. Patel agrees to admit the patient. Patient will be admitted to the mother-baby. Bridge orders placed. 05/04/19 21:30 ED Medical Decision Making - Lab Data Result diagrams: 05/04/19 15:01 05/04/19 15:01 - Radiology Data Radiology results: report reviewed ULTRASOUND OBSTETRIC INDICATION / CLINICAL INFORMATION: n/v. preg. Clinical Gestational Age (GA): 7.3 weeks.days TECHNIQUE: Transabdominal and Transvaginal. COMPARISON: Ultrasound dated 04/24/19 FINDINGS: GESTATIONAL SAC: Well-defined oval shape and intrauterine in location. YOLK SAC: No significant abnormality. EMBRYO/FETUS: No significant abnormality. - [place]-Rump Length = 1.32 cm = 7.4 weeks.days - Heart Rate, beats per minute (if present) = 154 ADNEXA: No significant abnormality. FREE FLUID: None. ADDITIONAL FINDINGS: None. IMPRESSION: 1. Single, living intrauterine with estimated sonographic age of 7.4 weeks.days. Appropriate interval growth. - Medical Decision Making Patient is a 28-year-old female that presents emergency room with complaints of nausea vomiting and and dizziness. Patient also originally complained of shortness of breath but states that has resolved with rest. Patient unable to tolerate p.o. intake. Patient has labs consistent with dehydration and poor p.o. intake. Patient found to have ketones in her urine along with protein. Patient also found to have hypokalemia and dehydration. Patient given IV fluids and potassium replacement. Patient admitted to CHAIR FINISHER on-call for further evaluation treatment. Patient admitted to the mother-baby. Patient also given Zofran 8 mg in the ER. Patient is a - Differential Diagnosis Hyperemesis gravidarum, nausea vomiting, dizziness, dehydration, electrolyt Critical Care Time: Yes Critical care time in (mins) excluding proc time.: 35 Critical care attestation.: If time is entered above; I have spent that time in minutes in the direct care of this critically ill patient, excluding procedure time. Critical Care Time: 35 minutes ED Disposition Clinical Impression: Hyperemesis gravidarum, Dizziness, Hypokalemia, Dehydration, Nausea and vomiting in prior to 22 weeks gestation, Acute urinary tract infection Qualifiers: Weeks of gestation: less than 8 weeks Qualified Code(s): Z3A.01 - Less than 8 weeks gestation of Disposition: OP ADMIT IP TO THIS HOSP Is pt being admited?: Yes Does the pt Need Aspirin: No Condition: Critical Time of Disposition: 21:40
[2019-05-04 19:32] LABS: Bacteria,Urine 1+ /HPF (Negative); Bilirubin,Urine NEG (Negative); Blood,Urine NEG (Negative); Color,Urine Yellow (Yellow); Mucus,Urine 3+ /HPF; Urobilinogen,Urine < 2.0 mg/dL (<2.0)
--- NOTE | 2019-05-04 20:13 | Ultrasound Report ---
ULTRASOUND OBSTETRIC INDICATION / CLINICAL INFORMATION: n/v. preg. Clinical Gestational Age (GA): 7.3 weeks.days TECHNIQUE: Transabdominal and Transvaginal. COMPARISON: Ultrasound dated 04/24/19 FINDINGS: GESTATIONAL SAC: Well-defined oval shape and intrauterine in location. YOLK SAC: No significant abnormality. EMBRYO/FETUS: No significant abnormality. - [place]-Rump Length = 1.32 cm = 7.4 weeks.days - Heart Rate, beats per minute (if present) = 154 ADNEXA: No significant abnormality. FREE FLUID: None. ADDITIONAL FINDINGS: None. IMPRESSION: 1. Single, living intrauterine with estimated sonographic age of 7.4 weeks.days. Appropria te interval growth. Signer Name: Marybel King MD Signed: 05/04/2019 8:08 PM Workstation Name: [id number]
--- NOTE | 2019-05-04 20:13 | Ultrasound Report ---
ULTRASOUND OBSTETRIC INDICATION / CLINICAL INFORMATION: n/v. preg. Clinical Gestational Age (GA): 7.3 weeks.days TECHNIQUE: Transabdominal and Transvaginal. COMPARISON: Ultrasound dated 04/24/19 FINDINGS: GESTATIONAL SAC: Well-defined oval shape and intrauterine in location. YOLK SAC: No significant abnormality. EMBRYO/FETUS: No significant abnormality. - [place]-Rump Length = 1.32 cm = 7.4 weeks.days - Heart Rate, beats per minute (if present) = 154 ADNEXA: No significant abnormality. FREE FLUID: None. ADDITIONAL FINDINGS: None. IMPRESSION: 1. Single, living intrauterine with estimated sonographic age of 7.4 weeks.days. Appropria te interval growth. Signer Name: Marybel King MD Signed: 05/04/2019 8:08 PM Workstation Name: [id number]
[2019-05-04] MEDS: POTASSIUM CHLORIDE 10 MEQ 10 MEQ/100 ML BAG IV SCH (21:24)
[2019-05-04] MEDS ORDERED: ONDANSETRON 4 MG/2 ML INJ IV PRN (23:48)
[2019-05-05] MEDS: LACTATED RINGERS 1,000 ML IV SCH ×2 (00:15→10:51)
[2019-05-05] MEDS: POTASSIUM CHLORIDE 10 MEQ 10 MEQ/100 ML BAG IV SCH ×2 (01:45→03:30)
--- NOTE | 2019-05-05 08:49 | History and Physical Report ---
History of Present Illness Date of examination: 05/05/19 Date of admission: 05/04/19 21:37 Chief complaint: Nausea/Vomiting of History of present illness: 28yo G1 at ~7 weeks admitted for observation for n/v of . FARRAH 12/17/2019 by first trimester US done in the ED 05/04/2019. NO VB,LOF. unable to tolerate PO. increasing dizziness and fatigue Past History Past Medical History: asthma Past Surgical History: no surgical history Social history: no significant social history - Obstetrical History Expected Date of Delivery: 12/17/19 Actual Gestation: 7 Week(s) 5 Day(s) : 1 Medications and Allergies Allergies Allergy/AdvReac Type Severity Reaction Status Date / Time No Known Allergies Allergy Unverified 05/02/14 21:15 Home Medications Medication Instructions Recorded Confirmed Last Taken Type Ondansetron [Zofran Odt] 4 mg PO Q6H #10 tab.rapdis 05/02/14 Unknown Rx Albuterol Sulfate [Ventolin HFA] 2 puff IH Q4H PRN #1 hfa.aer.ad 08/14/14 Unknown Rx Loratadine (Nf) [Claritin] 10 mg PO DAILY #30 tablet 08/14/14 Unknown Rx predniSONE [Deltasone] 40 mg PO QDAY #10 tab 08/14/14 Unknown Rx Ondansetron [Zofran Odt] 4 mg PO Q8H PRN #5 tab.rapdis 06/15/17 Unknown Rx Pnv No.95/Ferrous Fum/Folic AC 1 each PO QDAY #30 tablet 06/15/17 Unknown Rx [ Formula Tablet] Cephalexin [Keflex] 500 mg PO BID #20 capsule 06/21/17 Unknown Rx Al Root [La] 250 mg PO QID PRN #20 capsule 06/21/17 Unknown Rx Ondansetron [Zofran ODT TAB] 8 mg PO Q8H PRN #9 tab.rapdis 06/21/17 Unknown Rx Nitrofurantoin Macrocrysta(Nf) 100 mg PO BID #14 capsule 02/04/18 Unknown Rx [Macrodantin CAP] Ondansetron [Zofran Odt] 4 mg PO TID PRN #10 tab.rapdis 02/04/18 Unknown Rx Acetaminophen [Acetaminophen TAB] 500 mg PO Q6HR PRN #30 tablet 04/24/19 Unknown Rx Promethazine [Phenergan] 25 mg PO Q6HR PRN #30 tab 04/24/19 Unknown Rx cephALEXin [Keflex] 500 mg PO Q6HR #40 capsule 04/24/19 Unknown Rx Active Meds: Active Medications Lactated Ringer's (Lactated Ringers) 1,000 mls @ 125 mls/hr IV DIRECT TEJA Last Admin: 05/05/19 00:15 Dose: 125 mls/hr Documented by: Ondansetron HCl (Zofran) 4 mg IV Q4H PRN PRN Reason: Nausea And Vomiting Last Admin: 05/05/19 05:24 Dose: 4 mg Documented by: Review of Systems All systems: negative (nausea,vomiting) - Vital Signs Vital signs: Vital Signs Temp Pulse Resp BP Pulse Ox 97.7 F 63 16 107/71 98 05/04/19 13:44 05/04/19 13:44 05/04/19 13:44 05/04/19 13:44 05/04/19 13:44 Temp Pulse Resp BP Pulse Ox 97.9 F 62 18 102/57 97 05/05/19 04:49 05/05/19 04:49 05/05/19 04:49 05/05/19 04:49 05/05/19 04:49 - Physical Exam Breasts: Positive: deferred Cardiovascular: Regular rate Lungs: Positive: Clear to auscultation Abdomen: Positive: normal appearance Extremities: Positive: normal Deep Tendon Reflex Grade: Normal +2 - Obstetrical FHR: other (154bpm by US) Results Result Diagrams: 05/04/19 15:01 05/04/19 15:01 Abnormal lab results 05/04/19 05/04/19 05/04/19 Range/Units 15:01 15:01 15:01 WBC 14.0 H (4.5-11.0) K/mm3 RBC 5.26 H (3.65-5.03) M/mm3 MCH 27 L (28-32) pg RDW 16.6 H (13.2-15.2) % Seg Neutrophils % 76.7 H (40.0-70.0) % Seg Neutrophils # 10.8 H (1.8-7.7) K/mm3 Sodium 135 L (137-145) mmol/L Potassium 2.8 L* (3.6-5.0) mmol/L Chloride 85.4 L (98-107) mmol/L Glucose 133 H (65-100) mg/dL Calcium 10.6 H (8.4-10.2) mg/dL Magnesium 2.40 H (1.7-2.3) mg/dL HCG, Quant (0-4) mIU/mL Urine WBC (Auto) (0.0-6.0) /HPF 05/04/19 05/04/19 Range/Units 18:53 Unknown WBC (4.5-11.0) K/mm3 RBC (3.65-5.03) M/mm3 MCH (28-32) pg RDW (13.2-15.2) % Seg Neutrophils % (40.0-70.0) % Seg Neutrophils # (1.8-7.7) K/mm3 Sodium (137-145) mmol/L Potassium (3.6-5.0) mmol/L Chloride (98-107) mmol/L Glucose (65-100) mg/dL Calcium (8.4-10.2) mg/dL Magnesium (1.7-2.3) mg/dL HCG, Quant [id number] H (0-4) mIU/mL Urine WBC (Auto) 12.0 H (0.0-6.0) /HPF All other labs normal. Ultrasound: report reviewed, image reviewed Assessment and Plan N/V of Admit fluid zofran advance diet as tolerated. mayd/c this afternoon if she tolerated lunch FUP Dr Patel one week Wilmer PRITCHETT
[2019-05-05 14:09] VITALS: BP 100/53
== END 2019-05-05 15:20 | disposition home or self-care (01) ==
LOC: ED 13:30 → OB 21:37
PROVIDERS: ADMIT Obstetrics & Gynecology; ATTEND Obstetrics & Gynecology
DX: O21.0 Mild hyperemesis gravidarum (principal); O99.89 Other specified diseases and conditions complicating pregnancy, childbirth and the puerperium; E86.0 Dehydration; E87.6 Hypokalemia; J45.909 Unspecified asthma, uncomplicated; O99.511 Diseases of the respiratory system complicating pregnancy, first trimester; O26.891 Other specified pregnancy related conditions, first trimester; R42 Dizziness and giddiness; O23.41 Unspecified infection of urinary tract in pregnancy, first trimester; Z79.899 Other long term (current) drug therapy; Z3A.01 Less than 8 weeks gestation of pregnancy
CPT/HCPCS: 36415; 76801; 76817; 80048; 81001; 83735; 84702; 84703; 85025; 87086; 96361; 96365; 96366; 96375; 96376; 99291; G0378; J2405; J3480; J7030; J7120